=== PATIENT | male | born 1960 | race Caucasian/White ===

== ENCOUNTER 2024-01-22 11:51 | Emergency (ER) | payer OTHER ==
[~2024-01-22] VITALS: Ht 185.4 cm; Wt 107.4 kg
[2024-01-22] MEDS ORDERED: FLOM0.4C39 PO (12:05)
[2024-01-22] MEDS: methocarbamoL 500 MG TAB PO ONE (16:12)
[2024-01-22] MEDS: predniSONE 20 MG TAB PO ONE (16:12)
[2024-01-22] MEDS: KETOROLAC 60MG 2ML VIAL IM ONE (16:16)
[2024-01-22] MEDS: NORCO, ANEXSIA 5/325MG TABLET (HYDROcodone/ACETAMINOPHEN) PO ONE ×2 (17:26→22:34)
[2024-01-22] MEDS: TAMSULOSIN 0.4 MG CAP PO ONE (20:44)
[2024-01-22 22:25] VITALS: BP 169/88; TEMP 97.5; O2SAT 97
[2024-01-22] MEDS ORDERED: MEDR4PAK PO (22:30)
[2024-01-22] MEDS ORDERED: HYDR-3713 PO (22:30)
[2024-01-22] MEDS ORDERED: METH-1164 PO (22:30)
[2024-01-22] MEDS: NORCO 5/325MG TABLET (HOME DOSE PACK) PO ONE (22:35)
== END 2024-01-22 23:09 | disposition home or self-care (01) ==
LOC: M ED 11:51
DX: S33.0XXA Traumatic rupture of lumbar intervertebral disc, initial encounter (principal); M51.36 Other intervertebral disc degeneration, lumbar region; X58.XXXA Exposure to other specified factors, initial encounter; Y92.009 Unspecified place in unspecified non-institutional (private) residence as the place of occurrence of the external cause; Y93.89 Activity, other specified; Y99.9 Unspecified external cause status; Z87.891 Personal history of nicotine dependence
CPT/HCPCS: 72110; 72148; 93971; 96372; 99284; J1885; J7512